=== PATIENT | female | born 1975 | race Caucasian/White ===

== ENCOUNTER 2018-10-04 07:23 | Emergency (ER) | payer BC ==
[~2018-10-04] VITALS: Ht 162.6 cm; Wt 104.3 kg
[2018-10-04 07:54] LABS: HEMATOCRIT 43.8 % (37.0-47.0); HEMOGLOBIN 14.9 gm/dL (12.0-15.0); MCH 31.4 pg (26.0-34.0); MCHC 34.1 g/dL (28.0-37.0); MCV 92.3 fL (80.0-100.0); MPV 8.7 fl. (7.2-11.1); NUCLEATED RBCS 0 /100WBC; PLATELET COUNT* 305 thou/uL (150-400); RBC 4.74 mil/uL (4.20-5.00); RDW-CV 12.9 % (10.5-14.5); WBC 9.9 thou/uL (4.0-11.0)
[2018-10-04 07:56] LABS: URINE BILIRUBIN NEGATIVE (Negative); URINE BLOOD NEGATIVE (Negative); URINE CLARITY CLEAR; URINE COLOR YELLOW; URINE GLUCOSE-RANDOM NEGATIVE (Negative); URINE KETONES TRACE (Negative); URINE LEUKOCYTES-REFLEX NEGATIVE (Negative); URINE NITRITE-REFLEX NEGATIVE (Negative); URINE PROTEIN TRACE (Negative); URINE SPECIFIC GRAVITY >= 1.030 (1.005-1.030); URINE UROBILINOGEN 0.2 E.U./dl (0.2-1.0)
[2018-10-04 08:01] LABS: CALCIUM 8.7 mg/dL (8.5-10.1); POTASSIUM 4.1 mmol/L (3.5-5.1)
[2018-10-04 08:05] LABS: ALBUMIN 3.7 g/dL (3.4-5.0); TOTAL BILIRUBIN 1.5 mg/dL (<0.1-1.0); TOTAL PROTEIN 7.3 g/dL (6.4-8.2)
[2018-10-04 08:37] LABS: ABSOLUTE EOSINOPHILS 0.1 thou/uL (0.0-0.7); ABSOLUTE LYMPHOCYTES 0.1 thou/uL (0.8-5.3); ABSOLUTE MONOCYTES 0.2 thou/uL (0.0-1.2); ABSOLUTE NEUTROPHILS 9.5 thou/uL (1.6-8.1); PLATELET ESTIMATE ADEQUATE
[2018-10-04] MEDS ORDERED: PHENERGAN 25 MG25 M1 PO (09:21)
[2018-10-04 09:42] VITALS: BP 115/69
== END 2018-10-04 09:43 | disposition home or self-care (01) ==
LOC: M.ERS 07:23
PROVIDERS: Personal Emergency Response Attendant
DX: K52.9 Noninfective gastroenteritis and colitis, unspecified (principal); Z90.710 Acquired absence of both cervix and uterus

== ENCOUNTER 2018-11-09 15:37 | Emergency (ER) | payer BC ==
[~2018-11-09] VITALS: Ht 162.6 cm; Wt 99.8 kg
[~2018-11-09 15:37] MED LIST: PHENERGAN 25 MG25 M1 PO
[2018-11-09] MEDS ORDERED: IBUPROFEN 800800 M1 PO (16:27)
[2018-11-09] MEDS ORDERED: AUGMENTIN 875-1 EACH PO (16:27)
[2018-11-09 17:01] VITALS: BP 140/82
== END 2018-11-09 17:02 | disposition home or self-care (01) ==
LOC: M.ERS 15:37
DX: S01.511A Laceration without foreign body of lip, initial encounter (principal); Z90.710 Acquired absence of both cervix and uterus; W54.0XXA Bitten by dog, initial encounter; Y93.89 Activity, other specified; Y92.89 Other specified places as the place of occurrence of the external cause; Y99.8 Other external cause status

== ENCOUNTER → 2021-02-20 | Outpatient (CLI) | payer BC ==
[~2021-02-20] MED LIST changes: +AUGMENTIN 875-1 EACH PO; +IBUPROFEN 800800 M1 PO
== END ==
LOC: M.ULTRA 12:21
PROVIDERS: ATTEND Family Medicine
DX: Z12.31 Encounter for screening mammogram for malignant neoplasm of breast (principal); R22.9 Localized swelling, mass and lump, unspecified

== ENCOUNTER → 2021-03-03 | Outpatient (CLI) | payer BC | LOC: M.CT 02-26 10:08 | PROVIDERS: ATTEND Family Medicine | DX: M62.89 Other specified disorders of muscle (principal); M25.78 Osteophyte, vertebrae ==

== ENCOUNTER → 2021-05-06 | Outpatient (CLI) | payer BC | LOC: M.MRI 04-28 13:28 | PROVIDERS: ATTEND Family Medicine | DX: M25.411 Effusion, right shoulder (principal); M50.123 Cervical disc disorder at C6-C7 level with radiculopathy; M48.02 Spinal stenosis, cervical region; G89.29 Other chronic pain ==